=== PATIENT | male | born 1980 | race Caucasian/White ===

== ENCOUNTER 2022-03-02 09:38 | Emergency (ER) | payer OTHER, SELFPAY ==
[2022-03-02 09:51] VITALS: BP 135/90; PULSE 88; RESP 16; TEMP 36.4; O2SAT 100
--- NOTE | 2022-03-02 11:24 | ED.BACK ---
HPI - Back Pain/Injury General Chief Complaint: Back Pain/Injury Stated Complaint: CHRONIC BACK PAIN Time Seen by Provider: 03/02/22 11:18 History of Present Illness HPI Narrative: long h/o back issues left side has done therapy chiro and massage has f/u for mri trying tylenol no injury new changes/neuro incontinence or other c/o just can't sleep wiht pain worse laying/sitting fine when up xray done arthritis changes Related Data Allergies Allergy/AdvReac Type Severity Reaction Status Date / Time No Known Allergies Allergy Unknown Verified 03/02/22 11:41 Review of Systems Constitutional: Comments: CONSTITUTIONAL: Denies fever, chills, or sweats. EYES: Denies visual changes, redness, or discharge. ENT: Denies rhinorrhea, congestion, sore throat, or otalgia. CARDIOVASCULAR: Denies chest pain, palpitations, or edema. RESPIRATORY: Denies cough or dyspnea. GASTROINTESTINAL: Denies abdominal pain, nausea, vomiting, or diarrhea. GENITOURINARY: Denies dysuria or hematuria. SKIN: Denies rash or itching. MUSCULOSKELETAL: Denies, joint pain, or myalgia. has chronic back pain NEUROLOGIC: Denies headache, numbness, or weakness. PSYCHIATRIC: Denies anxiety or depression. Exam Const: Other: APPEARANCE: Well appearing, no pain in distress, well-nourished. Head normocephalic atraumtaic. EYES: PERRLA/EOMI, conjunctivae very clear. NOSE: Normal no drainage EARS:TMS clear Alexy Estrella, with good light reflex. THROAT: Pharynx clear, no exudate. NECK: Supple. No adenopathy, no masses. RESPIRATORY: Airway patent, repsirations nonlabored. Clear to auscultation bilaterally, no rales, rhonchi, wheezing. CARDIOVASCULAR: Regular rate and rhythm without murmurs rubs or gallops. ABDOMINAL: Soft, nontender, nondistended, no hepatosplenomegally MUSCULOSKELETAl: Moves all extremities. Strenght/ROM intact, No edema, No calf tenderness. tend left lower back more with rom then palp no spinous tend NEURO: Alert. Cranial nerves II through XII intact. Good gait. Good coordination no foot drop or saddle paresthesias SKIN:: Warm, dry. Normal Color PSYCHIATRIC: Normal affect/mood, normal interaction with parents. Course Course Emergency Course: talked with pt aobut temporary pain meds b/c following plan and really needs mri for further pain management adn care pt good with this Vital Signs Vital signs: Vital Signs Temperature 36.4 C 03/02/22 09:51 Pulse Rate 88 03/02/22 09:51 Respiratory Rate 16 03/02/22 09:51 Blood Pressure 135/90 03/02/22 09:51 Pulse Oximetry 100 03/02/22 09:51 Oxygen Delivery Room Air 03/02/22 09:51 Temperature 36.4 C 03/02/22 09:51 Pulse Rate 88 03/02/22 09:51 Respiratory Rate 16 03/02/22 09:51 Blood Pressure 135/90 03/02/22 09:51 Pulse Oximetry 100 03/02/22 09:51 Oxygen Delivery Room Air 03/02/22 09:51 Discharge Plan Discharge Clinical Impression: Chronic back pain Patient Disposition: Home, Self-Care Condition: Stable Instructions: Antibiotic Form, Chronic Back Pain (DC) Additional Instructions: take naproxen, flexeril and prednisone and use over the counter icy hot and call your doc and get the MRI for further care, return if new issues Prescriptions: New prednisone 20 mg tablet 20 mg PO DAILY Qty: 5 0RF naproxen 500 mg tablet 500 mg PO BID Qty: 20 0RF cyclobenzaprine 10 mg tablet 10 mg PO TID Qty: 15 0RF cyclobenzaprine 10 mg tablet 10 mg PO TID Qty: 15 0RF prednisone 20 mg tablet 20 mg PO DAILY Qty: 5 0RF naproxen 500 mg tablet 500 mg PO BID Qty: 20 0RF Follow-up/Referrals: Randall Cloud MD [Primary Care Provider] -
== END 2022-03-02 11:52 | disposition home or self-care (01) ==
LOC: ANHED 11:40
PROVIDERS: Emergency Provider Emergency Medicine; PCP Family Medicine Adolescent Medicine
DX: M54.9 Dorsalgia, unspecified (principal); G89.29 Other chronic pain
CPT/HCPCS: 99283